=== PATIENT | male | born 1970 | race Caucasian/White ===

== ENCOUNTER 2017-01-26 05:03 | Emergency (ER) | payer BC ==
--- NOTE | 2017-01-26 05:27 | ED Physician Chart ---
Chief Complaint/HPI - Patient Information Date Seen:: 01/26/17 Time Seen:: 05:10 Chief Complaint:: R ankle pain since about 0345 today. History of Present Illness:: Pt has had R ankle pain after he accidentally twisted his R ankle when he was carrying a box. No other injury or bodily pain. Pain can be precipitated with wt bearing, and relieved when he takes wt off his R foot. Allergies:: Allergies Allergy/AdvReac Type Severity Reaction Status Date / Time pollen extracts Allergy Unknown Verified 01/25/16 06:53 Vitals:: Vital Signs - 8 hr 01/26/17 05:05 Temp 98.1 F HR 89 RR 20 BP 126/72 O2 Sat % 97 Historian:: Patient Family MD/PCP:: Dr. Sage LMP:: N/A Review:: Nurse's Note Reviewed Review of Systems - Review of Systems General/Constitutional: No fever, No chills, No weight loss, No weakness, Edema (Mild R ankle edema due to injury.), No loss of appetite Skin: No skin lesions, No rash, No bruising Head: No headache, No light-headedness Eyes: No loss of vision, No pain, No diplopia ENT: No earache, No nasal drainage, No sore throat, No tinnitus Neck: No neck pain, No swelling, No thyromegaly, No stiffness, No mass noted Cardio Vascular: No chest pain, No palpitations, No PND, edema (R ankle edema due to injury.) Pulmonary: No SOB, No cough, No wheezing GI: No nausea, No vomiting, No diarrhea, No pain G/U: No dysuria, No frequency Musculoskeletal: Bone or joint pain (R ankle pain), No back pain Endocrine: No polyuria, No polydipsia Psychiatric: No prior psych history Hematopoietic: No bruising, No lymphadenopathy Allergic/Immuno: No urticaria, No angioedema Neurological: No syncope, No focal symptoms, No weakness, No paresthesia, No headache, No seizure, No dizziness, No confusion, No vertigo Past Medical History - Past Medical History Past Medical History: HTN, DM Family History: Diabetes Melitus (Parents.) Social History: Non Smoker, No Alcohol, No Drug Use, Single, Lives Alone, Employed Employment:: features editor Surgical History: None Psychiatricy History: None Medication: Reviewed Family Medical History - Family Member Father Hx Family Diabetes: Yes Mother Living Status: Still Living Hx Family Diabetes: Yes Physical Exam - Physical Examination General/Constitutional: Awake, Well-developed, well-nourished, Alert, No distress, GCS 15, Non-toxic appearing Other Gen/Cons comments:: Breathes comfortably, speaks clearly, and interacts normally. Head: Atraumatic Eyes: Lids, conjuctiva normal, PERRL, EOMI Skin: Nl inspection, No rash, No skin lesions, No ecchymosis, Well hydrated, No lymphadenopathy ENMT: External ears, nose nl, Nasal exam nl, Lips, teeth, gums nl, Oropharynx nl Neck: Nontender, Full ROM w/o pain, No JVD, No nuchal rigidity, No mass, No stridor Respiratory: Nl effort/Exclusion, Clear to Auscultation, No Wheeze/Rhonchi/Rales Cardio Vascular: RRR, No murmur, gallop, rubs GI: No tenderness/rebounding/guarding, No organomegaly, Normal BS's, Nondistended, No mass/bruits Other GI comments:: Obese but soft. Other Extremities comments:: RLE: R ankle: tenderness to palpation at medial and lateral aspect with mild edema. No gross deformity, erythema, crepitus, or open wound. ROM is decreased due to pain. No detectable motor/sensory/vascular deficit. Good distal pulse and capillary refill. Neuro/Psych: Alert/oriented (oriented x 3), Judgement/insight normal, Mood normal, No focal deficits Misc: normal gait, Normal back, No paraspinal tenderness Labs/Radiology/EKG Results - Radiology Results Results: R ankle X-ray (3v): Based on my interpretation, distal spiral fracture of R fibula without significant displacement. Distal R tibial malleolar fracture. Official report is pending. ED Septic Shock - . Is Septic Shock (SBP<90, OR Lactate>4 mmol\L) present?: No - <6hrs of presentation: Vital Signs: Vital Signs - 8 hr 01/26/17 05:05 Temp 98.1 F HR 89 RR 20 BP 126/72 O2 Sat % 97 Reassessment (Disposition) - Reassessment Reassessment:: 0540 Pain medication was offered but pt declined as he has no pain when he is not bearing wt on R ankle. 0620 R ankle X-ray became available with radiological findings reviewed with pt. Management plan has been discussed. 0650 R long leg splint extended to R foot was placed by my nurse. I reexamined pt. Splint had been properly placed without neurovascular deficit. Pt remains essentially pain free. Pt requests to go home now and does not want further observation/management in hospital. Aftercare instructions have been given. Reassessment Condition:: Improved - Diagnosis Diagnosis:: R distal fibular and distal tibial malleolar fracture, stable. Diabetes mellitus, stable. Accuchek is 165. - Aftercare/Follow up Instructions Aftercare/Follow-Up Instructions:: Refer to Discharge Instructions Notes:: Wear R long leg splint as instructed. No wt bearing on R foot/ankle. Use crutches. May take Tylenol 500 mg tab one tab po q6h prn pain. Fracture instructions given. F/U with PCP Dr. Sage later today for recheck and orthopedic referral. Return to ER immediately if condition worsens or if any further questions/ problems. - Patient Disposition Discharge/Transfer:: Home Time:: 07:00 Condition at Disposition:: Stable, Improved
--- NOTE | 2017-01-26 09:20 | Diagnostic Imaging Report ---
Right ankle (3 views) HISTORY: Pain The exam demonstrates mildly displaced oblique fracture of the distal fibula along with a displaced fracture of the medial malleolus. Spur formation noted about the dorsal and plantar aspects of the posterior calcaneus. IMPRESSION: 1. Fractures distal fibula and medial malleolus
== END 2017-01-26 07:00 | disposition home or self-care (01) ==
LOC: ER 05:03
DX: S82.301A Unspecified fracture of lower end of right tibia, initial encounter for closed fracture (principal); S82.831A Other fracture of upper and lower end of right fibula, initial encounter for closed fracture; I10 Essential (primary) hypertension; E11.9 Type 2 diabetes mellitus without complications; Z91.09 Other allergy status, other than to drugs and biological substances; X58.XXXA Exposure to other specified factors, initial encounter; Y93.89 Activity, other specified; Y92.89 Other specified places as the place of occurrence of the external cause; Y99.8 Other external cause status
CPT/HCPCS: 29505; 73610-RT-TC; 82948-90; Z7502